=== PATIENT | female | born 2000 | race Caucasian/White ===

== ENCOUNTER 2024-11-21 00:11 | Inpatient (IN) | payer OTHER ==
[~2024-11-21] VITALS: Ht 160 cm; Wt 60.8 kg
[2024-11-21] MEDS ORDERED: CALCIUM CARBONATE 500 MG CHEW PO PRN ×2 (00:15→17:15)
[2024-11-21] MEDS ORDERED: OXYTOCIN/0.9 % SODIUM CHLORIDE 30 UNITS/500 ML BAG IV SCH (00:15)
[2024-11-21] MEDS ORDERED: MAGNESIUM HYDROXIDE/AL HYDROX 30 ML CUP PO PRN ×2 (00:15→17:15)
[2024-11-21] MEDS ORDERED: LACTATED RINGER'S 1,000 ML IV PRN (00:15)
[2024-11-21] MEDS ORDERED: miSOPROStoL 25 MCG TAB PV ONE (00:30)
[2024-11-21 00:50] LABS: HEMATOCRIT 33.6 % (34.1-44.9); HEMOGLOBIN 10.7 g/dL (11.2-15.7); MCH 25.1 PG (25.6-32.2); MCHC 31.8 g/dL (32.2-35.5); MCV 78.7 fL (79.4-94.8); RBC 4.27 M/uL (3.93-5.22)
[2024-11-21 01:07] LABS: AMPHETAMINES, URINE NEGATIVE (NEGATIVE); BARBITURATES, URINE NEGATIVE (NEGATIVE); BENZODIAZEPINE, URINE NEGATIVE (NEGATIVE); BUPRENORPHINE, URINE NEGATIVE (NEGATIVE); CANNABINOID, URINE POSITIVE (NEGATIVE); COCAINE, URINE NEGATIVE (NEGATIVE); ECSTASY, URINE NEGATIVE (NEGATIVE); FENTANYL, URINE NEGATIVE (NEGATIVE); METHADONE, URINE NEGATIVE (NEGATIVE); OPIATES, URINE NEGATIVE (NEGATIVE); OXYCODONE, URINE NEGATIVE (NEGATIVE); PHENCYCLIDINE, URINE NEGATIVE (NEGATIVE)
[2024-11-21 01:16] VITALS: BP 122/81
[2024-11-21 01:25] LABS: ABO A; ANTIBODY SCREEN NEGATIVE; RH POSITIVE
[2024-11-21] MEDS ORDERED: miSOPROStoL 25 MCG TAB BUCCAL SCH (04:30)
[2024-11-21] MEDS ORDERED: ondansetron HCL 4 MG/2 ML VIAL IV PRN (06:00)
[2024-11-21] MEDS ORDERED: SALINE LOCK FLUSH 5 ML SYR IV SCH (09:00)
[2024-11-21] MEDS ORDERED: ROPIVACAINE 0.2% 200 ML BAG EPIDURAL SCH (09:30)
[2024-11-21] MEDS ORDERED: ePHEDrine sulfate 5 MG/ML SYRINGE IV PRN (09:30)
[2024-11-21] MEDS ORDERED: LACTATED RINGER'S 2,000 ML IV ONE (09:30)
[2024-11-21] MEDS ORDERED: LACTATED RINGER'S 500 ML IV PRN (09:30)
[2024-11-21] MEDS ORDERED: OXYTOCIN/0.9 % SODIUM CHLORIDE 500 ML IV SCH ×2 (13:45→17:15)
[2024-11-21] MEDS ORDERED: HYDROCORTISONE ACETATE 25 MG SUPP PR PRN (17:15)
[2024-11-21] MEDS ORDERED: MAGNESIUM HYDROXIDE 30 ML UDC PO PRN (17:15)
[2024-11-21] MEDS ORDERED: BENZOCAINE 60 ML AEROSOL TOP PRN (17:15)
[2024-11-21] MEDS ORDERED: WITCH HAZEL/GLYCERIN 1 EA PAD TOP PRN (17:15)
[2024-11-21] MEDS ORDERED: HYDROCODONE/ACETA 5/325 TAB PO PRN (17:15)
[2024-11-21] MEDS ORDERED: ACETAMINOPHEN 325 MG TAB PO SCH (20:00)
[2024-11-21] MEDS ORDERED: IBUPROFEN 600 MG TAB PO SCH (20:00)
[2024-11-21] MEDS ORDERED: SENNOSIDES/DOCUSATE 1 EA TAB PO SCH (21:00)
== END 2024-11-23 11:15 | disposition home or self-care (01) | DRG 806 ==
LOC: FBC 00:11
PROVIDERS: ADMIT Obstetrics & Gynecology; ATTEND Obstetrics & Gynecology
PROC: 10E0XZZ Delivery of Products of Conception, External Approach (ICD-10-PCS; principal; 2024-11-21)
PROC: 3E0R3BZ Introduction of Anesthetic Agent into Spinal Canal, Percutaneous Approach (ICD-10-PCS; 2024-11-21)
PROC: 00HU33Z Insertion of Infusion Device into Spinal Canal, Percutaneous Approach (ICD-10-PCS; 2024-11-21)
PROC: 3E0DXGC Introduction of Other Therapeutic Substance into Mouth and Pharynx, External Approach (ICD-10-PCS; 2024-11-21)
DX: O36.5930 Maternal care for other known or suspected poor fetal growth, third trimester, not applicable or unspecified (principal); O99.324 Drug use complicating childbirth; Z37.0 Single live birth; O69.81X0 Labor and delivery complicated by cord around neck, without compression, not applicable or unspecified; Z87.891 Personal history of nicotine dependence; F12.90 Cannabis use, unspecified, uncomplicated; O99.52 Diseases of the respiratory system complicating childbirth; J45.909 Unspecified asthma, uncomplicated; O99.344 Other mental disorders complicating childbirth; F41.9 Anxiety disorder, unspecified; Z3A.38 38 weeks gestation of pregnancy
CPT/HCPCS: 36415; 80307; 85027; 86850; 86900; 86901; A9270; J2405; J7121